=== PATIENT | male | born 2000 | race Caucasian/White ===

== ENCOUNTER 2018-02-11 12:21 | Emergency (ER) | payer BC, OTHER ==
[~2018-02-11] VITALS: Ht 177.8 cm; Wt 80.2 kg
[2018-02-11 12:30] VITALS: BP 102/60; TEMP 36.7; Ht 177.8 cm; Wt 80.2 kg
[2018-02-11] MEDS ORDERED: ACETAMINOPHEN 500 MG TAB PO STA (12:43)
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
[2018-02-11 12:59] VITALS: PULSE 78; O2SAT 98
== END 2018-02-11 13:00 | disposition home or self-care (01) ==
LOC: C.EDB 12:22 → C.EDD 13:00
DX: S00.03XA Contusion of scalp, initial encounter (principal); W22.8XXA Striking against or struck by other objects, initial encounter; R40.2412 Glasgow coma scale score 13-15, at arrival to emergency department